=== PATIENT | male | born 1965 | race Hispanic/Latino ===

== ENCOUNTER 2023-11-30 09:07 | Inpatient (IN) | payer OTHER ==
[2023-11-30] MEDS ORDERED: Morphine 4 MG/ML VIAL ONE (09:40)
[2023-11-30] MEDS ORDERED: Ondansetron PF 4 MG/2 ML Vial ONE (09:41)
[2023-11-30 09:57] LABS: #Basophils 0.1 thou/uL (0.0-0.2); #Eosinphils 0.1 thou/uL (0.0-0.7); #Monocytes 0.6 thou/uL (0.11-0.59); #Neutrophils 7.3 thou/uL (1.40-6.50); %Basophils 0.7 % (0.0-1.0); %Eosinophils 1.1 % (0.0-10.0); %Lymphocytes 11.7 % (21.0-51.0); %Monocytes 6.9 % (0.0-10.0); %Neutrophils 79.1 % (42.0-75.0); Hematocrit 29.1 % (42.0-52.0); Hemoglobin 10.3 g/dL (14.0-18.0); Mean Corpuscular HGB CONC 35.4 g/dL (32.0-36.0); Mean Corpuscular Hemoglobin 27.9 pg (27.0-31.0); Mean Corpuscular Volume 78.9 fl (78.0-98.0); Platelet Count 401 10x3/uL (130-400); RBC Distribution Width 15.8 % (11.5-14.5); Red Blood Cell (RBC) Count 3.69 mill/uL (4.70-6.10); White Blood Cell (WBC) Count 9.2 10x3/uL (4.8-10.8)
[2023-11-30 10:20] LABS: ALT (SGPT) 16 U/L (8-55); AST (SGOT) 25 U/L (5-34); Albumin 2.8 g/dL (3.5-5.0); Alkaline Phosphatase 229 U/L (40-110); Anion Gap 7 mmol/L (10-20); BUN (Urea Nitrogen) 11 mg/dL (8.4-25.7); Bilirubin, Total 0.5 mg/dL (0.2-1.2); CRP (Inflammatory) 2.21 mg/dL (= or < 0.5); Calc. Creatinine Clearance 0 mL/min (70-130); Carbon Dioxide 34 mmol/L (22-29); Chloride 94 mmol/L (98-107); Estimated GFR 110; Globulin 3.8 g/dL (2.4-3.5); Glucose 211 mg/dL (70-105); Potassium 3.6 mmol/L (3.5-5.1); Protein, Total 6.6 g/dL (6.0-8.3); Sodium 131 mmol/L (136-145)
[2023-11-30] MEDS ORDERED: Dextrose 50% Abboject 50 ML SYRINGE SLOW IVP PRN (11:43)
[2023-11-30] MEDS ORDERED: Acetaminophen 325 MG TAB PO PRN (11:43)
[2023-11-30] MEDS ORDERED: Senokot S 8.6-50 MG TAB PO PRN (11:43)
[2023-11-30] MEDS ORDERED: Glucagon 1 MG/ML KIT IM PRN (11:43)
[2023-11-30] MEDS ORDERED: Dextrose 5% in Water 1,000 ML IV PRN (11:43)
[2023-11-30] MEDS: HYDROcodone/Acetaminophen 5/325 mg Tablet PO PRN (12:52)
[2023-11-30] MEDS: Morphine 4 MG/ML VIAL SLOW IVP PRN (15:48)
[2023-11-30] MEDS ORDERED: Iopamidol-370 76% 500 ML MDV (1 ML CHARGE) ONE (15:50)
[2023-11-30] MEDS: metFORMIN 500 MG TAB PO SCH (20:13)
[2023-11-30] MEDS: Famotidine 20 MG TAB PO SCH (20:13)
[2023-11-30] MEDS: Atorvastatin Calcium 20 MG TAB PO SCH (20:14)
[2023-12-01] MEDS: Lisinopril 20 MG TAB PO SCH ×2 (00:54→08:37)
[2023-12-01] MEDS ORDERED: hydrALAZINE 25 MG TAB PO SCH (03:30)
[2023-12-01] MEDS: hydrALAZINE 25 MG TAB PO SCH (03:31)
[2023-12-01 05:43] LABS: #Basophils 0.1 thou/uL (0.0-0.2); #Eosinphils 0.2 thou/uL (0.0-0.7); #Monocytes 0.7 thou/uL (0.11-0.59); #Neutrophils 7.9 thou/uL (1.40-6.50); %Basophils 0.6 % (0.0-1.0); %Eosinophils 1.6 % (0.0-10.0); %Lymphocytes 10.2 % (21.0-51.0); %Monocytes 7.2 % (0.0-10.0); Hematocrit 28.2 % (42.0-52.0); Hemoglobin 9.7 g/dL (14.0-18.0); Mean Corpuscular HGB CONC 34.4 g/dL (32.0-36.0); Mean Corpuscular Hemoglobin 27.5 pg (27.0-31.0); Mean Corpuscular Volume 79.9 fl (78.0-98.0); Mean Platelet Volume 8.3 fL (7.4-10.4); Platelet Count 367 10x3/uL (130-400); RBC Distribution Width 16.1 % (11.5-14.5); Red Blood Cell (RBC) Count 3.53 mill/uL (4.70-6.10); White Blood Cell (WBC) Count 9.8 10x3/uL (4.8-10.8)
[2023-12-01] MEDS: Insulin Regular 300 UNITS/3 ML VIAL SC PRN (06:14)
[2023-12-01] MEDS: Levothyroxine Sodium 112 MCG TAB PO SCH (06:14)
[2023-12-01 06:16] LABS: ALT (SGPT) 15 U/L (8-55); AST (SGOT) 18 U/L (5-34); Albumin 2.6 g/dL (3.5-5.0); Alkaline Phosphatase 203 U/L (40-110); Anion Gap 9 mmol/L (10-20); BUN (Urea Nitrogen) 13 mg/dL (8.4-25.7); Bilirubin, Total 0.5 mg/dL (0.2-1.2); Calc. Creatinine Clearance 162 mL/min (70-130); Calcium 8.8 mg/dL (7.8-10.44); Carbon Dioxide 30 mmol/L (22-29); Chloride 94 mmol/L (98-107); Estimated GFR 112; Globulin 3.6 g/dL (2.4-3.5); Glucose 202 mg/dL (70-105); Potassium 4.1 mmol/L (3.5-5.1); Protein, Total 6.2 g/dL (6.0-8.3); Sodium 129 mmol/L (136-145)
[2023-12-01] MEDS: Alogliptin 25 MG TAB PO SCH (08:37)
[2023-12-01] MEDS: Lidocaine 4% Patch TD SCH (12:29)
[2023-12-01] MEDS: Magnesium Citrate 300 ML BOT PO SCH (13:33)
[2023-12-01] MEDS: Vancomycin (BATCH) 2 GM in Premix 1 BAG IVPB SCH (13:33)
[2023-12-01] MEDS: Vancomycin 1 GM in Premix 1 BAG IVPB SCH (14:02)
[2023-12-01] MEDS ORDERED: Cefepime 2 GM in Sodium Chloride 0.9% 100 ML IVPB SCH ×2 (16:00→21:00)
[2023-12-01] MEDS: Cefepime 2 GM in Sodium Chloride 0.9% 100 ML IVPB SCH (16:28)
[2023-12-01] MEDS: metFORMIN 500 MG TAB PO SCH (17:03)
[2023-12-01] MEDS: Ondansetron PF 4 MG/2 ML Vial IVP PRN (18:33)
[2023-12-01] MEDS ORDERED: Vancomycin 1 GM in Premix 1 BAG IVPB SCH (20:00)
[2023-12-01] MEDS: Transdermal Patch Removal TOP SCH (20:43)
[2023-12-02 05:51] LABS: #Eosinphils 0.1 thou/uL (0.0-0.7); #Monocytes 0.6 thou/uL (0.11-0.59); #Neutrophils 6.1 thou/uL (1.40-6.50); %Basophils 0.5 % (0.0-1.0); %Eosinophils 1.6 % (0.0-10.0); %Lymphocytes 14.8 % (21.0-51.0); %Monocytes 7.3 % (0.0-10.0); %Neutrophils 75.6 % (42.0-75.0); Hematocrit 26.5 % (42.0-52.0); Hemoglobin 9.1 g/dL (14.0-18.0); Mean Corpuscular HGB CONC 34.3 g/dL (32.0-36.0); Mean Corpuscular Hemoglobin 27.5 pg (27.0-31.0); Mean Corpuscular Volume 80.1 fl (78.0-98.0); Mean Platelet Volume 8.5 fL (7.4-10.4); Platelet Count 340 10x3/uL (130-400); RBC Distribution Width 16.1 % (11.5-14.5); Red Blood Cell (RBC) Count 3.31 mill/uL (4.70-6.10)
[2023-12-02 06:16] LABS: Anion Gap 11 mmol/L (10-20); BUN (Urea Nitrogen) 13 mg/dL (8.4-25.7); CRP (Inflammatory) 8.69 mg/dL (= or < 0.5); Calc. Creatinine Clearance 165 mL/min (70-130); Calcium 8.6 mg/dL (7.8-10.44); Carbon Dioxide 28 mmol/L (22-29); Chloride 94 mmol/L (98-107); Estimated GFR 113; Glucose 149 mg/dL (70-105); Sodium 129 mmol/L (136-145)
[2023-12-02] MEDS: HYDROcodone/Acetaminophen 5/325 mg Tablet PO PRN (08:56)
[2023-12-02] MEDS: Lidocaine 4% Patch TD SCH (08:58)
[2023-12-03 06:25] LABS: #Basophils 0.1 thou/uL (0.0-0.2); #Eosinphils 0.1 thou/uL (0.0-0.7); #Monocytes 0.7 thou/uL (0.11-0.59); %Basophils 0.7 % (0.0-1.0); %Lymphocytes 14.7 % (21.0-51.0); %Monocytes 9.6 % (0.0-10.0); %Neutrophils 72.7 % (42.0-75.0); Hemoglobin 9.7 g/dL (14.0-18.0); Mean Corpuscular HGB CONC 34.6 g/dL (32.0-36.0); Mean Corpuscular Hemoglobin 27.7 pg (27.0-31.0); Mean Platelet Volume 8.7 fL (7.4-10.4); Platelet Count 364 10x3/uL (130-400); White Blood Cell (WBC) Count 6.9 10x3/uL (4.8-10.8)
[2023-12-03 06:47] LABS: Anion Gap 11 mmol/L (10-20); BUN (Urea Nitrogen) 15 mg/dL (8.4-25.7); Calc. Creatinine Clearance 159 mL/min (70-130); Calcium 8.6 mg/dL (7.8-10.44); Carbon Dioxide 28 mmol/L (22-29); Chloride 94 mmol/L (98-107); Estimated GFR 112; Glucose 212 mg/dL (70-105); Potassium 3.8 mmol/L (3.5-5.1); Sodium 129 mmol/L (136-145)
[2023-12-03] MEDS ORDERED: Sodium Bicarbonate 2.5 MEQ/5 ML SDV ONE (10:15)
[2023-12-03] MEDS ORDERED: Lidocaine 1% PF 5 ML VIAL ONE (10:15)
[2023-12-03] MEDS ORDERED: fentaNYL 50 mcg/mL 1 mL Vial ONE ×2 (10:15→10:49)
[2023-12-03] MEDS ORDERED: Midazolam HCl 2 mg/2 ml Vial ONE (10:48)
[2023-12-03] MEDS ORDERED: Morphine 2 MG/ML VIAL ONE (10:49)
[2023-12-03] MEDS ORDERED: Lidocaine 1% w/Epinephrine 1:100K 20 ML VIAL ONE (10:57)
[2023-12-03] MEDS ORDERED: Vancomycin 1 GM in Premix 1 BAG IVPB SCH (12:18)
[2023-12-03] MEDS ORDERED: VANCOMYCIN IVPB PRN (12:18)
[2023-12-03] MEDS: Piperacillin/Tazobactam 3.375 GM in Sodium Chloride 0.9% 100 ML IVPB SCH ×2 (13:54→18:01)
[2023-12-03] MEDS: Vancomycin 1 GM in Premix 1 BAG IVPB SCH (15:45)
[2023-12-03] MEDS: Senokot S 8.6-50 MG TAB PO SCH (20:27)
[2023-12-04] MEDS: hydrALAZINE 20 MG/ML VIAL SLOW IVP SCH (04:42)
[2023-12-04 07:03] LABS: #Basophils 0.1 thou/uL (0.0-0.2); #Eosinphils 0.2 thou/uL (0.0-0.7); #Monocytes 0.6 thou/uL (0.11-0.59); #Neutrophils 5.9 thou/uL (1.40-6.50); %Basophils 0.7 % (0.0-1.0); %Eosinophils 2.4 % (0.0-10.0); %Lymphocytes 11.4 % (21.0-51.0); %Monocytes 7.6 % (0.0-10.0); %Neutrophils 77.4 % (42.0-75.0); Hematocrit 26.6 % (42.0-52.0); Hemoglobin 9.2 g/dL (14.0-18.0); Mean Corpuscular HGB CONC 34.6 g/dL (32.0-36.0); Mean Corpuscular Volume 80.9 fl (78.0-98.0); Mean Platelet Volume 8.5 fL (7.4-10.4); Platelet Count 313 10x3/uL (130-400); RBC Distribution Width 16.1 % (11.5-14.5); Red Blood Cell (RBC) Count 3.29 mill/uL (4.70-6.10); White Blood Cell (WBC) Count 7.6 10x3/uL (4.8-10.8)
[2023-12-04 07:25] LABS: Anion Gap 10 mmol/L (10-20); BUN (Urea Nitrogen) 14 mg/dL (8.4-25.7); Calc. Creatinine Clearance 156 mL/min (70-130); Calcium 8.6 mg/dL (7.8-10.44); Carbon Dioxide 30 mmol/L (22-29); Chloride 94 mmol/L (98-107); Estimated GFR 111; Glucose 153 mg/dL (70-105); Potassium 3.4 mmol/L (3.5-5.1); Sodium 131 mmol/L (136-145)
[2023-12-04] MEDS: Polyethylene Glycol 3350 17 GM Packet PO SCH (07:37)
[2023-12-04] MEDS: Potassium Chloride 20 MEQ TAB PO SCH (09:32)
[2023-12-04] MEDS: HYDROcodone/Acetaminophen 7.5/325 mg Tablet PO PRN (14:34)
[2023-12-04 15:39] LABS: Vancomycin, Trough 16.8 ug/mL
[2023-12-04] MEDS: Morphine 4 MG/ML VIAL SLOW IVP PRN (17:50)
[2023-12-04 23:13] LABS: QuantiFERON-TB Gold Plus Negative (Negative)
[2023-12-05] MEDS: HYDROcodone/Acetaminophen 7.5/325 mg Tablet PO PRN (02:45)
[2023-12-05 05:10] LABS: #Basophils 0.1 thou/uL (0.0-0.2); #Eosinphils 0.2 thou/uL (0.0-0.7); #Monocytes 0.6 thou/uL (0.11-0.59); #Neutrophils 3.3 thou/uL (1.40-6.50); %Basophils 0.9 % (0.0-1.0); %Eosinophils 4.1 % (0.0-10.0); %Lymphocytes 21.3 % (21.0-51.0); %Monocytes 11.7 % (0.0-10.0); %Neutrophils 61.8 % (42.0-75.0); Hematocrit 26.2 % (42.0-52.0); Mean Corpuscular HGB CONC 34.4 g/dL (32.0-36.0); Mean Corpuscular Volume 81.4 fl (78.0-98.0); Mean Platelet Volume 8.3 fL (7.4-10.4); Platelet Count 312 10x3/uL (130-400); Red Blood Cell (RBC) Count 3.22 mill/uL (4.70-6.10); White Blood Cell (WBC) Count 5.4 10x3/uL (4.8-10.8)
[2023-12-05 05:28] LABS: Anion Gap 11 mmol/L (10-20); BUN (Urea Nitrogen) 11 mg/dL (8.4-25.7); Calc. Creatinine Clearance 136 mL/min (70-130); Calcium 8.2 mg/dL (7.8-10.44); Carbon Dioxide 30 mmol/L (22-29); Chloride 95 mmol/L (98-107); Estimated GFR 107; Glucose 156 mg/dL (70-105); Potassium 3.9 mmol/L (3.5-5.1); Sodium 132 mmol/L (136-145)
[2023-12-05] MEDS: Bisacodyl 5 MG TAB PO PRN (08:52)
[2023-12-05 17:06] LABS: Vancomycin, Trough 30.8 ug/mL
[2023-12-05] MEDS: Fleet Saline Enema 133 ML BOT PR PRN (18:14)
[2023-12-06 16:19] LABS: Vancomycin, Random 17.6 ug/mL (See Comment)
[2023-12-06] MEDS ORDERED: Vancomycin (BATCH) 1.25 GM in Premix 1 BAG IVPB SCH (17:00)
[2023-12-06] MEDS: DAPTOmycin 650 MG in Sodium Chloride 0.9% 50 ML IVPB SCH (19:25)
[2023-12-06 20:29] LABS: Chloride 104 mmol/L (98-107); Potassium 5.3 mmol/L (3.5-5.1); Sodium 136 mmol/L (136-145)
[2023-12-06 20:30] LABS: Glucose 111 mg/dL (70-105)
[2023-12-06 20:32] LABS: Calcium 9.7 mg/dL (7.8-10.44); Carbon Dioxide 17 mmol/L (22-29)
[2023-12-06 20:34] LABS: BUN (Urea Nitrogen) 12 mg/dL (8.4-25.7)
[2023-12-06 20:35] LABS: Calc. Creatinine Clearance 87 mL/min (70-130); Estimated GFR 79
[2023-12-06 20:36] LABS: Anion Gap 20 mmol/L (10-20)
[2023-12-06 21:06] LABS: #Basophils 0.1 thou/uL (0.0-0.2); #Eosinphils 0.1 thou/uL (0.0-0.7); #Monocytes 0.4 thou/uL (0.11-0.59); #Neutrophils 4.3 thou/uL (1.40-6.50); %Eosinophils 1.5 % (0.0-10.0); %Lymphocytes 17.2 % (21.0-51.0); %Monocytes 6.8 % (0.0-10.0); %Neutrophils 73.2 % (42.0-75.0); Hematocrit 27.8 % (42.0-52.0); Hemoglobin 9.5 g/dL (14.0-18.0); Mean Corpuscular HGB CONC 34.2 g/dL (32.0-36.0); Mean Platelet Volume 8.5 fL (7.4-10.4); Platelet Count 361 10x3/uL (130-400); RBC Distribution Width 16.4 % (11.5-14.5); Red Blood Cell (RBC) Count 3.39 mill/uL (4.70-6.10); White Blood Cell (WBC) Count 5.9 10x3/uL (4.8-10.8)
[2023-12-07 05:34] LABS: #Basophils 0.1 thou/uL (0.0-0.2); #Eosinphils 0.1 thou/uL (0.0-0.7); #Monocytes 0.4 thou/uL (0.11-0.59); #Neutrophils 4.3 thou/uL (1.40-6.50); %Basophils 0.9 % (0.0-1.0); %Eosinophils 1.5 % (0.0-10.0); %Lymphocytes 17.1 % (21.0-51.0); %Monocytes 7.5 % (0.0-10.0); %Neutrophils 72.7 % (42.0-75.0); Hematocrit 27.9 % (42.0-52.0); Hemoglobin 9.3 g/dL (14.0-18.0); Mean Corpuscular HGB CONC 33.3 g/dL (32.0-36.0); Mean Corpuscular Hemoglobin 27.7 pg (27.0-31.0); Mean Platelet Volume 8.6 fL (7.4-10.4); Platelet Count 397 10x3/uL (130-400); RBC Distribution Width 16.3 % (11.5-14.5); Red Blood Cell (RBC) Count 3.36 mill/uL (4.70-6.10); White Blood Cell (WBC) Count 5.9 10x3/uL (4.8-10.8)
[2023-12-07 05:53] LABS: Anion Gap 16 mmol/L (10-20); BUN (Urea Nitrogen) 17 mg/dL (8.4-25.7); CK (CPK) 47 U/L (30-200); Calc. Creatinine Clearance 86 mL/min (70-130); Calcium 8.5 mg/dL (7.8-10.44); Carbon Dioxide 26 mmol/L (22-29); Chloride 97 mmol/L (98-107); Estimated GFR 78; Glucose 139 mg/dL (70-105); Potassium 3.4 mmol/L (3.5-5.1); Sodium 136 mmol/L (136-145)
[2023-12-07] MEDS: Amlodipine 5 MG TAB PO SCH (09:03)
[2023-12-07] MEDS: Ketorolac Tromethamine 30 MG (1 mL) VIAL IVP SCH (11:49)
[2023-12-07] MEDS: Gabapentin 300 MG CAP PO SCH ×2 (11:51→21:05)
[2023-12-07] MEDS: Potassium Chloride 20 MEQ TAB PO SCH (11:55)
[2023-12-08] MEDS ORDERED: Sodium Bicarbonate 2.5 MEQ/5 ML SDV ONE (07:29)
[2023-12-08] MEDS ORDERED: Lidocaine 1% PF 5 ML VIAL ONE (07:29)
[2023-12-08 10:37] LABS: Brucella IgM Ab Negative (Negative)
[2023-12-09] MEDS: Magnesium Citrate 300 ML BOT PO SCH (00:44)
[2023-12-09 13:13] VITALS: BMI 23.8
[2023-12-11 19:35] VITALS: BP 143/88; TEMP 98.9
== END 2023-12-11 21:00 | DRG 477 ==
LOC: ERS 09:07 → MSONC 11:11 → OBSVTOIN 12-01 14:30 → T4-B 12-07 19:54
PROVIDERS: ADMIT Internal Medicine; ATTEND Internal Medicine
PROC: 0PB43ZX Excision of Thoracic Vertebra, Percutaneous Approach, Diagnostic (ICD-10-PCS; principal; 2023-12-03)
PROC: 0P943ZX Drainage of Thoracic Vertebra, Percutaneous Approach, Diagnostic (ICD-10-PCS; 2023-12-03)
PROC: 02HV33Z Insertion of Infusion Device into Superior Vena Cava, Percutaneous Approach (ICD-10-PCS; 2023-12-08)
PROC: B5181ZA Fluoroscopy of Superior Vena Cava using Low Osmolar Contrast, Guidance (ICD-10-PCS; 2023-12-08)
PROC: 3E04329 Introduction of Other Anti-infective into Central Vein, Percutaneous Approach (ICD-10-PCS; 2023-12-08)
PROC: B548ZZA Ultrasonography of Superior Vena Cava, Guidance (ICD-10-PCS; 2023-12-08)
DX: M46.44 Discitis, unspecified, thoracic region (principal); G06.1 Intraspinal abscess and granuloma; M46.24 Osteomyelitis of vertebra, thoracic region; S22.079A Unspecified fracture of T9-T10 vertebra, initial encounter for closed fracture; M86.8X7 Other osteomyelitis, ankle and foot; E11.69 Type 2 diabetes mellitus with other specified complication; B95.62 Methicillin resistant Staphylococcus aureus infection as the cause of diseases classified elsewhere; I10 Essential (primary) hypertension; E87.5 Hyperkalemia; R53.81 Other malaise; E78.5 Hyperlipidemia, unspecified; E03.9 Hypothyroidism, unspecified; K59.00 Constipation, unspecified; N20.0 Calculus of kidney; Z90.49 Acquired absence of other specified parts of digestive tract; Z89.422 Acquired absence of other left toe(s); Z98.890 Other specified postprocedural states
CPT/HCPCS: 36415; 36416; 36569; 71045; 72128; 72157; 74177; 77002; 80048; 80053; 80202; 82550; 83036; 83690; 84443; 85025; 86140; 86480; 86622; 87040; 87070; 87077; 87102; 87116; 87186; 87205; 87206; 93005; 96374; 96375; 96376; G0378; J0360; J0878; J1815; J1885; J2250; J2270; J2272; J2405; J2543; J3010; J3370; J3370-JW; J3490; Q9967

== ENCOUNTER 2024-01-10 14:36 | Inpatient (IN) | payer OTHER ==
[2024-01-10] MEDS ORDERED: Iopamidol-370 76% 500 ML MDV (1 ML CHARGE) ONE (16:05)
[2024-01-10 16:26] LABS: #Eosinphils 0.2 thou/uL (0.0-0.7); #Monocytes 0.7 thou/uL (0.11-0.59); #Neutrophils 5.3 thou/uL (1.40-6.50); %Basophils 0.6 % (0.0-1.0); %Eosinophils 2.6 % (0.0-10.0); %Lymphocytes 10.6 % (21.0-51.0); %Monocytes 10.3 % (0.0-10.0); %Neutrophils 75.6 % (42.0-75.0); Hematocrit 26.6 % (42.0-52.0); Hemoglobin 9.2 g/dL (14.0-18.0); Mean Corpuscular HGB CONC 34.6 g/dL (32.0-36.0); Mean Corpuscular Hemoglobin 28.6 pg (27.0-31.0); Mean Corpuscular Volume 82.6 fl (78.0-98.0); Mean Platelet Volume 8.7 fL (7.4-10.4); Platelet Count 391 10x3/uL (130-400); RBC Distribution Width 14.7 % (11.5-14.5); Red Blood Cell (RBC) Count 3.22 mill/uL (4.70-6.10)
[2024-01-10 16:43] LABS: ALT (SGPT) 8 U/L (8-55); AST (SGOT) 17 U/L (5-34); Albumin 3.1 g/dL (3.5-5.0); Alkaline Phosphatase 233 U/L (40-110); Anion Gap 14 mmol/L (10-20); BUN (Urea Nitrogen) 16 mg/dL (8.4-25.7); Bilirubin, Total 0.4 mg/dL (0.2-1.2); Calc. Creatinine Clearance 0 mL/min (70-130); Calcium 9.3 mg/dL (7.8-10.44); Carbon Dioxide 27 mmol/L (22-29); Chloride 96 mmol/L (98-107); Estimated GFR 103; Globulin 3.8 g/dL (2.4-3.5); Glucose 121 mg/dL (70-105); Potassium 3.4 mmol/L (3.5-5.1); Protein, Total 6.9 g/dL (6.0-8.3); Sodium 134 mmol/L (136-145)
[2024-01-10] MEDS ORDERED: Morphine 2 MG/ML VIAL ONE (16:58)
[2024-01-10] MEDS ORDERED: Morphine 4 MG/ML VIAL ONE (19:13)
[2024-01-10] MEDS ORDERED: Ondansetron PF 4 MG/2 ML Vial IVP PRN (22:42)
[2024-01-10] MEDS ORDERED: Acetaminophen 650 MG Suppository PR PRN (22:42)
[2024-01-10] MEDS ORDERED: dilTIAZem 25 MG/5 ML VIAL ONE (22:52)
[2024-01-10] MEDS ORDERED: Dextrose 50% Abboject 50 ML SYRINGE SLOW IVP PRN (23:02)
[2024-01-10] MEDS ORDERED: Glucagon 1 MG/ML KIT IM PRN (23:02)
[2024-01-10] MEDS ORDERED: HumaLOG 300 UNITS/3 ML VIAL SC PRN (23:02)
[2024-01-10] MEDS ORDERED: Dextrose 5% in Water 1,000 ML IV PRN (23:02)
[2024-01-10] MEDS ORDERED: Electrolyte Replacement Protocol 1 EACH FS PRN (23:02)
[2024-01-11] MEDS: Potassium Chloride 20 MEQ TAB PO SCH (00:07)
[2024-01-11] MEDS: HYDROcodone/Acetaminophen 5/325 mg Tablet PO PRN (00:07)
[2024-01-11 00:23] VITALS: BMI 21.2
[2024-01-11] MEDS: Melatonin 3 MG TAB PO PRN (01:24)
[2024-01-11] MEDS: dilTIAZem 25 MG/5 ML VIAL SLOW IVP SCH (01:29)
[2024-01-11] MEDS: Morphine 2 MG/ML VIAL SLOW IVP PRN (02:39)
[2024-01-11] MEDS: Levothyroxine Sodium 112 MCG TAB PO SCH (05:23)
[2024-01-11 05:47] LABS: #Basophils 0.1 thou/uL (0.0-0.2); #Eosinphils 0.1 thou/uL (0.0-0.7); #Monocytes 0.8 thou/uL (0.11-0.59); #Neutrophils 4.5 thou/uL (1.40-6.50); %Basophils 0.8 % (0.0-1.0); %Eosinophils 2.2 % (0.0-10.0); %Monocytes 12.4 % (0.0-10.0); %Neutrophils 71.1 % (42.0-75.0); Hematocrit 26.8 % (42.0-52.0); Hemoglobin 9.3 g/dL (14.0-18.0); Mean Corpuscular HGB CONC 34.7 g/dL (32.0-36.0); Mean Corpuscular Hemoglobin 28.1 pg (27.0-31.0); Mean Platelet Volume 8.6 fL (7.4-10.4); Platelet Count 405 10x3/uL (130-400); RBC Distribution Width 14.7 % (11.5-14.5); Red Blood Cell (RBC) Count 3.31 mill/uL (4.70-6.10); White Blood Cell (WBC) Count 6.4 10x3/uL (4.8-10.8)
[2024-01-11 06:10] LABS: Anion Gap 16 mmol/L (10-20); BUN (Urea Nitrogen) 16 mg/dL (8.4-25.7); Calc. Creatinine Clearance 102 mL/min (70-130); Calcium 9.1 mg/dL (7.8-10.44); Carbon Dioxide 24 mmol/L (22-29); Chloride 98 mmol/L (98-107); Estimated GFR 104; Glucose 135 mg/dL (70-105); Potassium 3.6 mmol/L (3.5-5.1); Sodium 134 mmol/L (136-145)
[2024-01-11] MEDS ORDERED: Amlodipine 5 MG TAB PO SCH (09:00)
[2024-01-11] MEDS ORDERED: [UNRECOGNIZED DRUG - OTHER] PO SCH (09:00)
[2024-01-11] MEDS ORDERED: Cholecalciferol 1,000 UNITS (25 MCG) TAB PO SCH (09:00)
[2024-01-11] MEDS: Lidocaine 4% Patch TD SCH (10:19)
[2024-01-11] MEDS: Famotidine 20 MG TAB PO SCH (10:19)
[2024-01-11] MEDS: Alogliptin 25 MG TAB PO SCH (10:19)
[2024-01-11] MEDS: Saccharomyces boulardii 250 MG CAP PO SCH (10:19)
[2024-01-11] MEDS: Cholecalciferol 1,000 UNITS (25 MCG) TAB PO SCH (10:19)
[2024-01-11] MEDS: Lisinopril 20 MG TAB PO SCH (10:21)
[2024-01-11] MEDS: metFORMIN 500 MG TAB PO SCH (10:21)
[2024-01-11] MEDS: Gabapentin 300 MG CAP PO SCH (10:21)
[2024-01-11] MEDS: Docusate 100 MG CAP PO SCH (10:21)
[2024-01-11] MEDS: Cyclobenzaprine 10 MG TAB PO SCH (10:21)
[2024-01-11] MEDS: Apixaban 5 MG TAB PO SCH (10:22)
[2024-01-11] MEDS: Famotidine/PF 20 mg/2ml Vial SLOW IVP SCH (10:22)
[2024-01-11] MEDS: Amlodipine 10 MG TAB PO SCH (10:22)
[2024-01-11] MEDS: Communication Order-Pharmacy FS ONE (16:28)
[2024-01-11] MEDS ORDERED: DAPTOmycin 500 MG VIAL IVPB SCH (17:00)
[2024-01-11] MEDS: oxyCODONE 5 MG TAB PO PRN (17:37)
[2024-01-11] MEDS: DAPTOmycin 650 MG in Sodium Chloride 0.9% 50 ML IVPB SCH (18:26)
[2024-01-11 19:17] LABS: Hematocrit 26.7 % (42.0-52.0); Hemoglobin 9.1 g/dL (14.0-18.0); Platelet Count 340 10x3/uL (130-400)
[2024-01-11] MEDS: Acetaminophen 325 MG TAB PO PRN (20:56)
[2024-01-11] MEDS: Enoxaparin 80 MG (0.8 mL) SYRINGE SC SCH (20:58)
[2024-01-11] MEDS: Sodium Chloride 0.9% 500 ML IV SCH (21:10)
[2024-01-11] MEDS: Metoprolol Tartrate 5 MG (5 mL) VIAL IVP SCH (21:22)
[2024-01-11] MEDS ORDERED: Metoprolol Tartrate 5 MG (5 mL) VIAL IVP SCH (21:30)
[2024-01-11] MEDS ORDERED: Sodium Chloride 0.9% 500 ML IV SCH (21:30)
[2024-01-12 06:24] LABS: #Eosinphils 0.2 thou/uL (0.0-0.7); #Monocytes 0.9 thou/uL (0.11-0.59); #Neutrophils 4.9 thou/uL (1.40-6.50); %Basophils 0.6 % (0.0-1.0); %Eosinophils 2.7 % (0.0-10.0); %Monocytes 13.2 % (0.0-10.0); %Neutrophils 72.1 % (42.0-75.0); Hematocrit 25.7 % (42.0-52.0); Hemoglobin 8.8 g/dL (14.0-18.0); Mean Corpuscular HGB CONC 34.2 g/dL (32.0-36.0); Mean Corpuscular Volume 81.8 fl (78.0-98.0); Mean Platelet Volume 8.3 fL (7.4-10.4); Platelet Count 361 10x3/uL (130-400); RBC Distribution Width 14.6 % (11.5-14.5); Red Blood Cell (RBC) Count 3.14 mill/uL (4.70-6.10); White Blood Cell (WBC) Count 6.8 10x3/uL (4.8-10.8)
[2024-01-12 06:57] LABS: Anion Gap 15 mmol/L (10-20); BUN (Urea Nitrogen) 19 mg/dL (8.4-25.7); Calc. Creatinine Clearance 79 mL/min (70-130); Calcium 8.7 mg/dL (7.8-10.44); Carbon Dioxide 23 mmol/L (22-29); Chloride 100 mmol/L (98-107); Estimated GFR 93; Glucose 122 mg/dL (70-105); Magnesium 1.5 mg/dL (1.6-2.6); Potassium 3.8 mmol/L (3.5-5.1); Sodium 134 mmol/L (136-145)
[2024-01-12 07:08] LABS: Free T4 (Free Thyroxine) 0.95 ng/dL (0.70-1.48); Thyroid Stimulating Hormone 2.749 uIU/mL (0.35-4.94)
[2024-01-12] MEDS ORDERED: Lorazepam 2 MG/ML VIAL SLOW IVP SCH (08:00)
[2024-01-12] MEDS: LORazepam 2 MG/ML SYR.(CARPUJECT) IVP SCH (09:23)
[2024-01-12] MEDS: Magnesium 2 GM/50 ML(in water) 2 GM in Premix 1 BAG IVPB SCH (11:03)
[2024-01-12 11:44] LABS: CRP (Inflammatory) 12.18 mg/dL (= or < 0.5)
[2024-01-12] MEDS: Carvedilol 6.25 MG TAB PO SCH (15:47)
[2024-01-12] MEDS: Vancomycin 1 GM in Sodium Chloride 0.9% 500 ML IVPB SCH (17:59)
[2024-01-12] MEDS: Acyclovir Sodium 500 mg (10 mL) Vial IVPB SCH (17:59)
[2024-01-12] MEDS: Vancomycin (BATCH) 1.5 GM in Premix 1 BAG IVPB SCH (18:23)
[2024-01-12] MEDS: HumaLOG 300 UNITS/3 ML VIAL SC PRN (18:28)
[2024-01-12] MEDS: Acyclovir Sodium 730 MG in Sodium Chloride 0.9% 250 ML 250 ML IVPB SCH (20:45)
[2024-01-13 04:27] LABS: #Eosinphils 0.1 thou/uL (0.0-0.7); #Monocytes 1.2 thou/uL (0.11-0.59); #Neutrophils 6.5 thou/uL (1.40-6.50); %Basophils 0.5 % (0.0-1.0); %Eosinophils 0.6 % (0.0-10.0); %Lymphocytes 8.9 % (21.0-51.0); %Monocytes 13.6 % (0.0-10.0); %Neutrophils 76.2 % (42.0-75.0); Hematocrit 23.4 % (42.0-52.0); Hemoglobin 7.9 g/dL (14.0-18.0); Mean Corpuscular HGB CONC 33.8 g/dL (32.0-36.0); Mean Corpuscular Hemoglobin 28.5 pg (27.0-31.0); Mean Platelet Volume 8.7 fL (7.4-10.4); Platelet Count 336 10x3/uL (130-400); RBC Distribution Width 14.5 % (11.5-14.5); Red Blood Cell (RBC) Count 2.77 mill/uL (4.70-6.10); White Blood Cell (WBC) Count 8.6 10x3/uL (4.8-10.8)
[2024-01-13 04:32] LABS: Mean Corpuscular Volume 84.5 fl (78.0-98.0)
[2024-01-13 05:00] LABS: Anion Gap 16 mmol/L (10-20); BUN (Urea Nitrogen) 21 mg/dL (8.4-25.7); Calc. Creatinine Clearance 81 mL/min (70-130); Calcium 8.8 mg/dL (7.8-10.44); Carbon Dioxide 22 mmol/L (22-29); Chloride 100 mmol/L (98-107); Estimated GFR 95; Glucose 141 mg/dL (70-105); Potassium 3.5 mmol/L (3.5-5.1); Sodium 134 mmol/L (136-145)
[2024-01-13 05:03] LABS: Vancomycin, Random 13.6 ug/mL (See Comment)
[2024-01-13] MEDS: Vancomycin HCl 750 MG in Sodium Chloride 0.9% 250 ML 250 ML IVPB SCH (06:27)
[2024-01-13] MEDS ORDERED: Lorazepam 2 MG/ML VIAL SLOW IVP SCH (08:30)
[2024-01-13] MEDS ORDERED: LORazepam 2 MG/ML SYR.(CARPUJECT) IVP SCH (08:45)
[2024-01-13] MEDS: Potassium Chloride 20 MEQ TAB PO SCH (10:21)
[2024-01-13] MEDS: Carvedilol 6.25 MG TAB PO SCH (10:22)
[2024-01-14 04:53] LABS: #Eosinphils 0.2 thou/uL (0.0-0.7); #Monocytes 0.8 thou/uL (0.11-0.59); #Neutrophils 4.9 thou/uL (1.40-6.50); %Basophils 0.6 % (0.0-1.0); %Eosinophils 2.6 % (0.0-10.0); %Lymphocytes 10.5 % (21.0-51.0); %Monocytes 12.2 % (0.0-10.0); %Neutrophils 73.6 % (42.0-75.0); Hematocrit 24.4 % (42.0-52.0); Hemoglobin 8.2 g/dL (14.0-18.0); Mean Corpuscular HGB CONC 33.6 g/dL (32.0-36.0); Mean Corpuscular Hemoglobin 28.3 pg (27.0-31.0); Mean Corpuscular Volume 84.1 fl (78.0-98.0); Platelet Count 351 10x3/uL (130-400); RBC Distribution Width 14.6 % (11.5-14.5); White Blood Cell (WBC) Count 6.6 10x3/uL (4.8-10.8)
[2024-01-14 05:09] LABS: Anion Gap 11 mmol/L (10-20); BUN (Urea Nitrogen) 23 mg/dL (8.4-25.7); Calc. Creatinine Clearance 101 mL/min (70-130); Calcium 8.4 mg/dL (7.8-10.44); Carbon Dioxide 24 mmol/L (22-29); Chloride 101 mmol/L (98-107); Estimated GFR 104; Glucose 127 mg/dL (70-105); Potassium 4.1 mmol/L (3.5-5.1); Sodium 132 mmol/L (136-145)
[2024-01-14] MEDS: oxyCODONE 5 MG TAB PO PRN (10:17)
[2024-01-14] MEDS: Acetaminophen 500 MG TAB PO SCH (10:19)
[2024-01-14] MEDS: FLU VACC QS2023-24(6MOS UP)/PF 60 MCG/0.5 ML SYRINGE IM ONE (10:59)
[2024-01-14] MEDS ORDERED: Morphine 2 MG/ML VIAL SLOW IVP PRN (14:32)
[2024-01-15] MEDS: oxyCODONE 5 MG TAB PO PRN (01:45)
[2024-01-15 04:55] LABS: #Eosinphils 0.2 thou/uL (0.0-0.7); #Monocytes 0.6 thou/uL (0.11-0.59); #Neutrophils 3.2 thou/uL (1.40-6.50); %Basophils 0.6 % (0.0-1.0); %Eosinophils 4.8 % (0.0-10.0); %Lymphocytes 15.8 % (21.0-51.0); %Monocytes 11.8 % (0.0-10.0); %Neutrophils 66.2 % (42.0-75.0); Hemoglobin 7.7 g/dL (14.0-18.0); Mean Corpuscular HGB CONC 33.5 g/dL (32.0-36.0); Mean Corpuscular Hemoglobin 27.9 pg (27.0-31.0); Mean Corpuscular Volume 83.3 fl (78.0-98.0); Mean Platelet Volume 8.9 fL (7.4-10.4); Platelet Count 344 10x3/uL (130-400); RBC Distribution Width 14.3 % (11.5-14.5); Red Blood Cell (RBC) Count 2.76 mill/uL (4.70-6.10); White Blood Cell (WBC) Count 4.8 10x3/uL (4.8-10.8)
[2024-01-15 05:29] LABS: Anion Gap 11 mmol/L (10-20); BUN (Urea Nitrogen) 15 mg/dL (8.4-25.7); Calc. Creatinine Clearance 108 mL/min (70-130); Calcium 8.6 mg/dL (7.8-10.44); Carbon Dioxide 25 mmol/L (22-29); Chloride 101 mmol/L (98-107); Estimated GFR 106; Glucose 100 mg/dL (70-105); Potassium 3.6 mmol/L (3.5-5.1); Sodium 133 mmol/L (136-145)
[2024-01-15] MEDS: Vancomycin 1 GM in Premix 1 BAG IVPB SCH (17:00)
[2024-01-16 05:30] LABS: #Eosinphils 0.2 thou/uL (0.0-0.7); #Monocytes 0.7 thou/uL (0.11-0.59); #Neutrophils 4.1 thou/uL (1.40-6.50); %Basophils 0.5 % (0.0-1.0); %Eosinophils 2.9 % (0.0-10.0); %Lymphocytes 17.8 % (21.0-51.0); %Monocytes 11.9 % (0.0-10.0); %Neutrophils 66.1 % (42.0-75.0); Hematocrit 24.5 % (42.0-52.0); Hemoglobin 8.4 g/dL (14.0-18.0); Mean Corpuscular HGB CONC 34.3 g/dL (32.0-36.0); Mean Corpuscular Hemoglobin 28.5 pg (27.0-31.0); Mean Corpuscular Volume 83.1 fl (78.0-98.0); Mean Platelet Volume 8.4 fL (7.4-10.4); Platelet Count 387 10x3/uL (130-400); RBC Distribution Width 14.2 % (11.5-14.5); Red Blood Cell (RBC) Count 2.95 mill/uL (4.70-6.10); White Blood Cell (WBC) Count 6.1 10x3/uL (4.8-10.8)
[2024-01-16 05:37] LABS: Anion Gap 11 mmol/L (10-20); BUN (Urea Nitrogen) 10 mg/dL (8.4-25.7); Calc. Creatinine Clearance 113 mL/min (70-130); Calcium 8.4 mg/dL (7.8-10.44); Carbon Dioxide 27 mmol/L (22-29); Chloride 100 mmol/L (98-107); Estimated GFR 107; Glucose 92 mg/dL (70-105); Potassium 3.6 mmol/L (3.5-5.1); Sodium 134 mmol/L (136-145)
[2024-01-16 06:57] LABS: Eosinophils 3 % (0-10); Lymphocytes 6 % (21-51); Monocytes 5 % (0-10); Neutrophil 85 % (42-75); Platelet Adequacy Comment Platelets Normal; RBC Morphology Within Normal Limits; Smudge Cells 13.1 %
[2024-01-16] MEDS: Ondansetron ODT 4 MG TAB PO PRN (10:00)
[2024-01-17 05:33] LABS: Hematocrit 23.6 % (42.0-52.0); Hemoglobin 8.1 g/dL (14.0-18.0); Platelet Count 396 10x3/uL (130-400)
[2024-01-17 05:35] LABS: #Basophils 0.04 10x3/uL (0.0-0.2); %Basophils 0.7 % (0.0-1.0); %Eosinophils 2.3 % (0.0-10.0); %Lymphocytes 16.7 % (21.0-51.0); %Monocytes 9.3 % (0.0-10.0); %Neutrophils 69.3 % (42.0-75.0); Hematocrit 24.4 % (42.0-52.0); Hemoglobin 8.3 g/dL (14.0-18.0); Mean Corpuscular Hemoglobin 27.9 pg (27.0-31.0); Mean Corpuscular Volume 82.2 fL (78.0-98.0); Mean Platelet Volume 8.7 fL (7.4-10.4); Platelet Count 407 10x3/uL (130-400); RBC Distribution Width 13.8 % (11.5-14.5); Red Blood Cell (RBC) Count 2.97 mill/uL (4.70-6.10)
[2024-01-17 05:56] LABS: Vancomycin, Random 22.2 ug/mL (See Comment)
[2024-01-17 06:02] LABS: Anion Gap 11 mmol/L (10-20); BUN (Urea Nitrogen) 12 mg/dL (8.4-25.7); Calc. Creatinine Clearance 113 mL/min (70-130); Calcium 7.8 mg/dL (7.8-10.44); Carbon Dioxide 26 mmol/L (22-29); Chloride 99 mmol/L (98-107); Estimated GFR 107; Glucose 106 mg/dL (70-105); Potassium 3.7 mmol/L (3.5-5.1); Sodium 132 mmol/L (136-145)
[2024-01-17] MEDS: Vancomycin HCl 750 MG in Sodium Chloride 0.9% 250 ML 250 ML IVPB SCH (19:23)
[2024-01-18 06:13] LABS: #Basophils 0.04 10x3/uL (0.0-0.2); %Basophils 0.6 % (0.0-1.0); %Eosinophils 2.4 % (0.0-10.0); %Lymphocytes 20.1 % (21.0-51.0); %Monocytes 9.4 % (0.0-10.0); %Neutrophils 65.5 % (42.0-75.0); Hematocrit 25.5 % (42.0-52.0); Hemoglobin 8.6 g/dL (14.0-18.0); Mean Corpuscular HGB CONC 33.7 g/dL (32.0-36.0); Mean Corpuscular Hemoglobin 27.9 pg (27.0-31.0); Mean Corpuscular Volume 82.8 fL (78.0-98.0); Mean Platelet Volume 8.3 fL (7.4-10.4); Platelet Count 438 10x3/uL (130-400); RBC Distribution Width 14.4 % (11.5-14.5); Red Blood Cell (RBC) Count 3.08 mill/uL (4.70-6.10)
[2024-01-18 06:36] LABS: Vancomycin, Random 23.5 ug/mL (See Comment)
[2024-01-18 06:40] LABS: Anion Gap 13 mmol/L (10-20); BUN (Urea Nitrogen) 10 mg/dL (8.4-25.7); Calc. Creatinine Clearance 113 mL/min (70-130); Calcium 7.9 mg/dL (7.8-10.44); Carbon Dioxide 22 mmol/L (22-29); Chloride 101 mmol/L (98-107); Estimated GFR 107; Glucose 75 mg/dL (70-105); Potassium 4.3 mmol/L (3.5-5.1); Sodium 132 mmol/L (136-145)
[2024-01-18] MEDS: Senokot S 8.6-50 MG TAB PO SCH (09:48)
[2024-01-18] MEDS: Calcitonin,Salmon,Synthetic 200 Units NASAL PUMP 3.7 ML R NARE SCH (10:43)
[2024-01-19] MEDS: Acyclovir Sodium 730 MG in Sodium Chloride 0.9% 250 ML 250 ML IVPB SCH (04:12)
[2024-01-19 05:39] LABS: #Basophils 0.05 10x3/uL (0.0-0.2); %Basophils 0.5 % (0.0-1.0); %Eosinophils 1.4 % (0.0-10.0); %Lymphocytes 14.1 % (21.0-51.0); %Monocytes 7.3 % (0.0-10.0); %Neutrophils 75.1 % (42.0-75.0); Hematocrit 28.8 % (42.0-52.0); Hemoglobin 9.6 g/dL (14.0-18.0); Mean Corpuscular HGB CONC 33.3 g/dL (32.0-36.0); Mean Corpuscular Hemoglobin 28.3 pg (27.0-31.0); Mean Platelet Volume 8.6 fL (7.4-10.4); Platelet Count 501 10x3/uL (130-400); RBC Distribution Width 14.4 % (11.5-14.5); Red Blood Cell (RBC) Count 3.39 mill/uL (4.70-6.10)
[2024-01-19 06:16] LABS: Anion Gap 14 mmol/L (10-20); BUN (Urea Nitrogen) 12 mg/dL (8.4-25.7); Calc. Creatinine Clearance 109 mL/min (70-130); Carbon Dioxide 22 mmol/L (22-29); Chloride 102 mmol/L (98-107); Estimated GFR 106; Glucose 80 mg/dL (70-105); Potassium 3.7 mmol/L (3.5-5.1); Sodium 134 mmol/L (136-145)
[2024-01-20 05:45] LABS: #Basophils 0.05 10x3/uL (0.0-0.2); %Basophils 0.7 % (0.0-1.0); %Eosinophils 2.7 % (0.0-10.0); %Lymphocytes 23.2 % (21.0-51.0); %Monocytes 8.8 % (0.0-10.0); %Neutrophils 62.2 % (42.0-75.0); Hematocrit 27.5 % (42.0-52.0); Hemoglobin 9.3 g/dL (14.0-18.0); Mean Corpuscular HGB CONC 33.8 g/dL (32.0-36.0); Mean Corpuscular Volume 82.8 fL (78.0-98.0); Mean Platelet Volume 8.6 fL (7.4-10.4); Platelet Count 528 10x3/uL (130-400); RBC Distribution Width 14.5 % (11.5-14.5); Red Blood Cell (RBC) Count 3.32 mill/uL (4.70-6.10)
[2024-01-20 05:55] LABS: Anion Gap 14 mmol/L (10-20); BUN (Urea Nitrogen) 14 mg/dL (8.4-25.7); Calc. Creatinine Clearance 106 mL/min (70-130); Calcium 7.9 mg/dL (7.8-10.44); Carbon Dioxide 22 mmol/L (22-29); Chloride 103 mmol/L (98-107); Estimated GFR 105; Glucose 88 mg/dL (70-105); Potassium 3.5 mmol/L (3.5-5.1); Sodium 135 mmol/L (136-145)
[2024-01-20] MEDS: Potassium Chloride 20 MEQ TAB PO SCH (09:18)
[2024-01-20] MEDS: Naproxen 500 MG TAB PO SCH ×2 (15:22→21:11)
[2024-01-21 06:22] LABS: #Basophils 0.03 10x3/uL (0.0-0.2); %Basophils 0.4 % (0.0-1.0); %Eosinophils 2.4 % (0.0-10.0); %Lymphocytes 21.7 % (21.0-51.0); %Monocytes 9.1 % (0.0-10.0); %Neutrophils 63.7 % (42.0-75.0); Hematocrit 27.1 % (42.0-52.0); Hemoglobin 9.2 g/dL (14.0-18.0); Mean Corpuscular HGB CONC 33.9 g/dL (32.0-36.0); Mean Corpuscular Hemoglobin 28.5 pg (27.0-31.0); Mean Corpuscular Volume 83.9 fL (78.0-98.0); Mean Platelet Volume 8.5 fL (7.4-10.4); Platelet Count 491 10x3/uL (130-400); RBC Distribution Width 14.4 % (11.5-14.5); Red Blood Cell (RBC) Count 3.23 mill/uL (4.70-6.10)
[2024-01-21 06:46] LABS: Vancomycin, Random 20.3 ug/mL (See Comment)
[2024-01-21 06:57] LABS: Anion Gap 11 mmol/L (10-20); BUN (Urea Nitrogen) 14 mg/dL (8.4-25.7); Calc. Creatinine Clearance 118 mL/min (70-130); Calcium 7.9 mg/dL (7.8-10.44); Carbon Dioxide 23 mmol/L (22-29); Chloride 105 mmol/L (98-107); Estimated GFR 109; Glucose 72 mg/dL (70-105); Potassium 4.4 mmol/L (3.5-5.1); Sodium 135 mmol/L (136-145)
[2024-01-21] MEDS: Morphine 2 MG/ML VIAL SLOW IVP PRN (13:22)
[2024-01-21] MEDS: valACYclovir 500 MG TAB PO SCH (18:08)
[2024-01-21] MEDS: Famotidine 20 MG TAB PO SCH (20:07)
[2024-01-21] MEDS: Enoxaparin 80 MG (0.8 mL) SYRINGE SC SCH (20:07)
[2024-01-21] MEDS: Rifampin 300 MG CAP PO SCH (21:36)
[2024-01-22] MEDS: valACYclovir 500 MG TAB PO SCH (08:34)
[2024-01-22] MEDS ORDERED: DAPTOmycin 500 MG VIAL SLOW IVP SCH (09:00)
[2024-01-22 12:53] VITALS: BP 116/67; TEMP 97.4
== END 2024-01-22 14:10 | DRG 551 ==
LOC: ERS 14:36 → 2NO 21:29
PROVIDERS: ADMIT Student in an Organized Health Care Education/Training Program; ATTEND Family Medicine
DX: M46.44 Discitis, unspecified, thoracic region (principal); G93.41 Metabolic encephalopathy; M46.24 Osteomyelitis of vertebra, thoracic region; S22.079A Unspecified fracture of T9-T10 vertebra, initial encounter for closed fracture; M86.8X7 Other osteomyelitis, ankle and foot; E11.69 Type 2 diabetes mellitus with other specified complication; B95.62 Methicillin resistant Staphylococcus aureus infection as the cause of diseases classified elsewhere; R53.81 Other malaise; I10 Essential (primary) hypertension; E78.5 Hyperlipidemia, unspecified; I48.91 Unspecified atrial fibrillation; R41.0 Disorientation, unspecified; M48.04 Spinal stenosis, thoracic region; R33.9 Retention of urine, unspecified; B02.9 Zoster without complications; Z90.49 Acquired absence of other specified parts of digestive tract
CPT/HCPCS: 36415; 36416; 70450; 71260; 72146; 74177; 80048; 80053; 80202; 82550; 83605; 83735; 84439; 84443; 85025; 86140; 87040; 93005; 93010; 93306; 96374; 96376; J0133; J0878; J1650; J1815; J2060; J2270; J2272; J3370; J3370-JW; J3475; J7030; J7050; Q0162; Q9967; S0028